=== PATIENT | male | born 1945 | race Caucasian/White ===

== ENCOUNTER 2018-08-16 13:03 | Inpatient (IN) | payer MEDICARE, OTHER ==
[2018-08-16 14:11] LABS: ADD MAN DIFF? NO
[2018-08-16 14:13] LABS: BASOPHILS % 0.7 % (0.0-2.0); EOSINOPHILS # 0.3 10^3/ul (0.0-0.5); EOSINOPHILS % 4.3 % (0.0-7.0); HEMATOCRIT 21.7 % (42.0-52.0); LYMPHOCYTES # 0.7 10^3/ul (0.8-2.9); LYMPHOCYTES % 12.5 % (15.0-51.0); MEAN CORPUSCULAR HEMOGLOBIN 33.3 pg (29.0-33.0); MEAN CORPUSCULAR HGB CONC 32.3 g/dl (32.0-37.0); MEAN CORPUSCULAR VOLUME 103.3 fl (82.0-101.0); MEAN PLATELET VOLUME 10.7 fl (7.4-10.4); MONOCYTE # 0.5 10^3/ul (0.3-0.9); MONOCYTES % 7.9 % (0.0-11.0); NEUTROPHIL # 4.3 10^3/ul (1.6-7.5); NEUTROPHILS % 74.3 % (39.0-77.0); PLATELET COUNT 234 10^3/UL (140-415); RED CELL DISTRIBUTION WIDTH 17.2 % (11.5-14.5)
[2018-08-16 14:13] LABS: WHITE BLOOD COUNT 5.8 10^3/ul (4.8-10.8)
[2018-08-16] MEDS ORDERED: ONDANSETRON 4 MG INJ IV (14:30)
[2018-08-16] MEDS ORDERED: ACETAMINOPHEN 325 MG TAB PO (14:30)
[2018-08-16 14:34] LABS: ALANINE AMINOTRANSFERASE 15 IU/L (13-69); ALBUMIN 3.7 g/dl (3.3-4.9); ALBUMIN/GLOBULIN RATIO 1.12; ALKALINE PHOSPHATASE 80 IU/L (42-121); ANION GAP 11 (5-13); ASPARTATE AMINO TRANSFERASE 40 IU/L (15-46); BILIRUBIN,INDIRECT 0.2 mg/dl (0-1.1); BILIRUBIN,TOTAL 0.2 mg/dl (0.2-1.3); BLOOD UREA NITROGEN 24 mg/dl (7-20); CALCIUM 9.5 mg/dl (8.4-10.2); CARBON DIOXIDE 34 mmol/L (21-31); CHLORIDE 94 mmol/L (97-110); CREATININE 2.25 mg/dl (0.61-1.24); GLUCOSE 105 mg/dl (70-220); POTASSIUM 3.6 mmol/L (3.5-5.1); SODIUM 139 mmol/L (135-144)
[2018-08-16 15:40] LABS: INR 0.94; PROTIME 12.7 Sec (11.9-14.9)
[2018-08-16 15:41] LABS: PARTIAL THROMBOPLASTIN TIME 31.3 Sec (23.0-35.0)
[2018-08-16] MEDS: SOD CHLORIDE 0.9% 250 ML IV (16:19)
[2018-08-16] MEDS: SOD CHLORIDE 0.9% 250 ML IV* (18:21)
[2018-08-16] MEDS: ATORVASTATIN 20 MG TAB PO (21:39)
[2018-08-16] MEDS: METOPROLOL 25 MG TAB PO (21:39)
[2018-08-17 07:01] LABS: ADD MAN DIFF? NO
[2018-08-17 07:07] LABS: BASOPHILS % 1.1 % (0.0-2.0); EOSINOPHILS # 0.4 10^3/ul (0.0-0.5); HEMATOCRIT 26.3 % (42.0-52.0); HEMOGLOBIN 8.5 g/dl (14.0-18.0); LYMPHOCYTES # 0.8 10^3/ul (0.8-2.9); LYMPHOCYTES % 14.3 % (15.0-51.0); MEAN CORPUSCULAR HEMOGLOBIN 32.4 pg (29.0-33.0); MEAN CORPUSCULAR HGB CONC 32.3 g/dl (32.0-37.0); MEAN CORPUSCULAR VOLUME 100.4 fl (82.0-101.0); MEAN PLATELET VOLUME 10.8 fl (7.4-10.4); MONOCYTE # 0.5 10^3/ul (0.3-0.9); MONOCYTES % 8.8 % (0.0-11.0); NEUTROPHIL # 3.8 10^3/ul (1.6-7.5); NEUTROPHILS % 68.4 % (39.0-77.0); PLATELET COUNT 186 10^3/UL (140-415); RED BLOOD COUNT 2.62 10^6/ul (4.70-6.10); RED CELL DISTRIBUTION WIDTH 17.5 % (11.5-14.5)
[2018-08-17 07:07] LABS: WHITE BLOOD COUNT 5.6 10^3/ul (4.8-10.8)
[2018-08-17 07:08] LABS: BASOPHIL # 0.1 10^3/ul (0.0-0.1)
[2018-08-17 07:36] LABS: ANION GAP 7 (5-13); BLOOD UREA NITROGEN 37 mg/dl (7-20); CARBON DIOXIDE 33 mmol/L (21-31); CHLORIDE 100 mmol/L (97-110); CREATININE 3.25 mg/dl (0.61-1.24); GLUCOSE 99 mg/dl (70-220); POTASSIUM 4.2 mmol/L (3.5-5.1); SODIUM 140 mmol/L (135-144)
[2018-08-17] MEDS: AMLODIPINE 10 MG TAB PO (08:57)
[2018-08-17] MEDS: METOPROLOL 25 MG TAB PO ×2 (08:57→20:43)
[2018-08-17] MEDS ORDERED: ALBUMIN HUMAN 25% 100 ML IV (09:00)
[2018-08-17] MEDS ORDERED: SODIUM CHLORIDE 0.9% 1L BAG IV (09:00)
[2018-08-17] MEDS: CALCIUM ACETATE 667 MG CAP PO ×3 (09:20→17:32)
[2018-08-17] MEDS: ALLOPURINOL 300 MG TAB PO (09:20)
[2018-08-17 13:04] LABS: HEMATOCRIT 24.3 % (42.0-52.0); HEMOGLOBIN 7.9 g/dl (14.0-18.0)
[2018-08-17 20:16] LABS: HEMATOCRIT 24.7 % (42.0-52.0); HEMOGLOBIN 8.1 g/dl (14.0-18.0)
[2018-08-17] MEDS: ATORVASTATIN 20 MG TAB PO (20:42)
[2018-08-17 21:05] LABS: HEPATITIS B SURFACE ANTIGEN NEGATIVE (NEGATIVE)
[2018-08-17 21:23] LABS: HEPATITIS B SURFACE ANTIBODY NEGATIVE (NEGATIVE)
[2018-08-17 21:57] LABS: IMMEDIATE SPIN CROSSMATCH 1 4
[2018-08-18 06:48] LABS: ANION GAP 9 (5-13); BLOOD UREA NITROGEN 42 mg/dl (7-20); CARBON DIOXIDE 28 mmol/L (21-31); CHLORIDE 103 mmol/L (97-110); CREATININE 3.77 mg/dl (0.61-1.24); GLUCOSE 89 mg/dl (70-220); POTASSIUM 3.5 mmol/L (3.5-5.1); SODIUM 140 mmol/L (135-144)
[2018-08-18] MEDS: CALCIUM ACETATE 667 MG CAP PO ×3 (08:16→17:42)
[2018-08-18] MEDS: ALLOPURINOL 300 MG TAB PO (08:16)
[2018-08-18] MEDS: METOPROLOL 25 MG TAB PO ×2 (08:17→20:58)
[2018-08-18] MEDS: AMLODIPINE 10 MG TAB PO (08:17)
[2018-08-18 09:50] LABS: HEMATOCRIT 27.5 % (42.0-52.0)
[2018-08-18 20:52] LABS: HEMATOCRIT 29.2 % (42.0-52.0); HEMOGLOBIN 9.6 g/dl (14.0-18.0)
[2018-08-18] MEDS: BISACODYL (EC) 5 MG TAB PO ×2 (20:52→23:32)
[2018-08-18] MEDS: ATORVASTATIN 20 MG TAB PO (20:55)
[2018-08-18] MEDS: PEG/ELECTROLYTES 4L BTL PO (21:47)
[2018-08-19] MEDS: PEG/ELECTROLYTES 4L BTL PO (00:21)
[2018-08-19 05:20] LABS: ADD MAN DIFF? NO
[2018-08-19 05:24] LABS: WHITE BLOOD COUNT 6.7 10^3/ul (4.8-10.8)
[2018-08-19 05:24] LABS: BASOPHIL # 0.1 10^3/ul (0.0-0.1); BASOPHILS % 0.9 % (0.0-2.0); EOSINOPHILS # 0.4 10^3/ul (0.0-0.5); EOSINOPHILS % 5.3 % (0.0-7.0); HEMATOCRIT 30.9 % (42.0-52.0); LYMPHOCYTES # 0.7 10^3/ul (0.8-2.9); LYMPHOCYTES % 10.4 % (15.0-51.0); MEAN CORPUSCULAR HEMOGLOBIN 31.7 pg (29.0-33.0); MEAN CORPUSCULAR HGB CONC 32.4 g/dl (32.0-37.0); MEAN CORPUSCULAR VOLUME 98.1 fl (82.0-101.0); MEAN PLATELET VOLUME 10.5 fl (7.4-10.4); MONOCYTE # 0.5 10^3/ul (0.3-0.9); MONOCYTES % 7.8 % (0.0-11.0); NEUTROPHILS % 75.3 % (39.0-77.0); PLATELET COUNT 195 10^3/UL (140-415); RED BLOOD COUNT 3.15 10^6/ul (4.70-6.10); RED CELL DISTRIBUTION WIDTH 17.1 % (11.5-14.5)
[2018-08-19 05:57] LABS: ANION GAP 11 (5-13); BLOOD UREA NITROGEN 25 mg/dl (7-20); CALCIUM 9.5 mg/dl (8.4-10.2); CARBON DIOXIDE 32 mmol/L (21-31); CHLORIDE 99 mmol/L (97-110); CREATININE 3.04 mg/dl (0.61-1.24); GLUCOSE 106 mg/dl (70-220); POTASSIUM 4.3 mmol/L (3.5-5.1); SODIUM 142 mmol/L (135-144)
[2018-08-19] MEDS: CALCIUM ACETATE 667 MG CAP PO ×3 (07:35→17:45)
[2018-08-19] MEDS: AMLODIPINE 10 MG TAB PO (08:38)
[2018-08-19] MEDS: METOPROLOL 25 MG TAB PO ×2 (08:38→21:41)
[2018-08-19] MEDS: ALLOPURINOL 300 MG TAB PO (08:38)
[2018-08-19 09:47] LABS: HEMATOCRIT 30.4 % (42.0-52.0); HEMOGLOBIN 9.9 g/dl (14.0-18.0)
[2018-08-19] MEDS: PROPOFOL 20 ML ×2 (12:10→13:02)
[2018-08-19] MEDS: FENTAnyl 50 MCG/ML VIAL (12:10)
[2018-08-19] MEDS ORDERED: HYDROmorphONE 1 MG/5 ML IV SYRINGE IV (12:30)
[2018-08-19] MEDS ORDERED: ONDANSETRON 4 MG INJ IV (12:30)
[2018-08-19] MEDS: EPHEDrine 50 MG INJ (13:02)
[2018-08-19] MEDS: SOD CHLORIDE 0.9% 250 ML IV* (15:49)
[2018-08-19] MEDS: ATORVASTATIN 20 MG TAB PO (21:41)
[2018-08-20 06:12] LABS: ADD MAN DIFF? NO
[2018-08-20 06:16] LABS: WHITE BLOOD COUNT 5.1 10^3/ul (4.8-10.8)
[2018-08-20 06:16] LABS: BASOPHILS % 0.8 % (0.0-2.0); EOSINOPHILS # 0.4 10^3/ul (0.0-0.5); EOSINOPHILS % 8.2 % (0.0-7.0); HEMATOCRIT 28.6 % (42.0-52.0); HEMOGLOBIN 9.4 g/dl (14.0-18.0); LYMPHOCYTES # 0.7 10^3/ul (0.8-2.9); LYMPHOCYTES % 14.3 % (15.0-51.0); MEAN CORPUSCULAR HEMOGLOBIN 32.3 pg (29.0-33.0); MEAN CORPUSCULAR HGB CONC 32.9 g/dl (32.0-37.0); MEAN CORPUSCULAR VOLUME 98.3 fl (82.0-101.0); MEAN PLATELET VOLUME 10.6 fl (7.4-10.4); MONOCYTE # 0.4 10^3/ul (0.3-0.9); NEUTROPHIL # 3.5 10^3/ul (1.6-7.5); NEUTROPHILS % 68.5 % (39.0-77.0); PLATELET COUNT 181 10^3/UL (140-415); RED BLOOD COUNT 2.91 10^6/ul (4.70-6.10); RED CELL DISTRIBUTION WIDTH 16.4 % (11.5-14.5)
[2018-08-20 06:37] LABS: ANION GAP 10 (5-13); BLOOD UREA NITROGEN 24 mg/dl (7-20); CALCIUM 9.2 mg/dl (8.4-10.2); CARBON DIOXIDE 30 mmol/L (21-31); CHLORIDE 98 mmol/L (97-110); CREATININE 3.36 mg/dl (0.61-1.24); GLUCOSE 94 mg/dl (70-220); POTASSIUM 3.5 mmol/L (3.5-5.1); SODIUM 138 mmol/L (135-144)
[2018-08-20] MEDS: AMLODIPINE 10 MG TAB PO (09:19)
[2018-08-20] MEDS: CALCIUM ACETATE 667 MG CAP PO ×3 (09:19→17:42)
[2018-08-20] MEDS: ALLOPURINOL 300 MG TAB PO (09:19)
[2018-08-20] MEDS: METOPROLOL 25 MG TAB PO ×2 (09:20→21:43)
[2018-08-20] MEDS: ATORVASTATIN 20 MG TAB PO (21:42)
[2018-08-21 06:06] LABS: ADD MAN DIFF? NO
[2018-08-21 06:11] LABS: BASOPHIL # 0.1 10^3/ul (0.0-0.1); BASOPHILS % 0.9 % (0.0-2.0); EOSINOPHILS # 0.5 10^3/ul (0.0-0.5); EOSINOPHILS % 9.2 % (0.0-7.0); HEMATOCRIT 28.7 % (42.0-52.0); HEMOGLOBIN 9.4 g/dl (14.0-18.0); LYMPHOCYTES # 0.8 10^3/ul (0.8-2.9); LYMPHOCYTES % 14.8 % (15.0-51.0); MEAN CORPUSCULAR HEMOGLOBIN 32.1 pg (29.0-33.0); MEAN CORPUSCULAR HGB CONC 32.8 g/dl (32.0-37.0); MEAN PLATELET VOLUME 10.5 fl (7.4-10.4); MONOCYTE # 0.5 10^3/ul (0.3-0.9); MONOCYTES % 9.4 % (0.0-11.0); NEUTROPHIL # 3.6 10^3/ul (1.6-7.5); NEUTROPHILS % 65.5 % (39.0-77.0); PLATELET COUNT 174 10^3/UL (140-415); RED BLOOD COUNT 2.93 10^6/ul (4.70-6.10); RED CELL DISTRIBUTION WIDTH 15.9 % (11.5-14.5)
[2018-08-21 06:11] LABS: WHITE BLOOD COUNT 5.6 10^3/ul (4.8-10.8)
[2018-08-21 06:53] LABS: ANION GAP 11 (5-13); BLOOD UREA NITROGEN 25 mg/dl (7-20); CALCIUM 9.3 mg/dl (8.4-10.2); CARBON DIOXIDE 28 mmol/L (21-31); CHLORIDE 99 mmol/L (97-110); CREATININE 3.53 mg/dl (0.61-1.24); GLUCOSE 87 mg/dl (70-220); POTASSIUM 4.3 mmol/L (3.5-5.1); SODIUM 138 mmol/L (135-144)
== END 2018-08-21 08:15 | disposition left against medical advice (07) | DRG 393 ==
LOC: E/R 13:03 → PP2 14:24
PROC: 0DBH8ZX Excision of Cecum, Via Natural or Artificial Opening Endoscopic, Diagnostic (ICD-10-PCS; principal; 2018-08-19 12:05)
PROC: 30233N1 Transfusion of Nonautologous Red Blood Cells into Peripheral Vein, Percutaneous Approach (ICD-10-PCS; 2018-08-19 12:05)
PROC: 30233N1 Transfusion of Nonautologous Red Blood Cells into Peripheral Vein, Percutaneous Approach (ICD-10-PCS; 2018-08-19 12:05)
PROC: 5A1D70Z Performance of Urinary Filtration, Intermittent, Less than 6 Hours Per Day (ICD-10-PCS; 2018-08-19 12:05)
PROC: 5A1D70Z Performance of Urinary Filtration, Intermittent, Less than 6 Hours Per Day (ICD-10-PCS; 2018-08-19 12:05)
DX: K64.4 Residual hemorrhoidal skin tags (principal); N18.6 End stage renal disease; D62 Acute posthemorrhagic anemia; I12.0 Hypertensive chronic kidney disease with stage 5 chronic kidney disease or end stage renal disease; I48.0 Paroxysmal atrial fibrillation; E78.5 Hyperlipidemia, unspecified; M10.9 Gout, unspecified; K55.20 Angiodysplasia of colon without hemorrhage; K57.90 Diverticulosis of intestine, part unspecified, without perforation or abscess without bleeding; D12.0 Benign neoplasm of cecum; Z99.2 Dependence on renal dialysis; Z90.79 Acquired absence of other genital organ(s); Z85.46 Personal history of malignant neoplasm of prostate
CPT/HCPCS: 36415; 36430; 80048; 80053; 85014; 85018; 85025; 85610; 85730; 86706; 86850; 86900; 86901; 86920; 87081; 87340; 88305; 90935; 93005; 93306; 99291-25

== ENCOUNTER 2019-01-25 09:45 | Observation (INO) | payer MEDICARE, OTHER ==
[2019-01-25 10:37] LABS: ADD MAN DIFF? NO
[2019-01-25 10:45] LABS: WHITE BLOOD COUNT 7.9 10^3/ul (4.8-10.8)
[2019-01-25 10:45] LABS: BASOPHIL # 0.1 10^3/ul (0.0-0.1); BASOPHILS % 1.1 % (0.0-2.0); EOSINOPHILS # 0.6 10^3/ul (0.0-0.5); EOSINOPHILS % 7.1 % (0.0-7.0); HEMATOCRIT 28.2 % (42.0-52.0); LYMPHOCYTES # 0.8 10^3/ul (0.8-2.9); LYMPHOCYTES % 10.6 % (15.0-51.0); MEAN CORPUSCULAR HEMOGLOBIN 31.8 pg (29.0-33.0); MEAN CORPUSCULAR HGB CONC 31.9 g/dl (32.0-37.0); MEAN CORPUSCULAR VOLUME 99.6 fl (82.0-101.0); MEAN PLATELET VOLUME 10.6 fl (7.4-10.4); MONOCYTE # 0.7 10^3/ul (0.3-0.9); MONOCYTES % 8.5 % (0.0-11.0); NEUTROPHIL # 5.7 10^3/ul (1.6-7.5); NEUTROPHILS % 72.3 % (39.0-77.0); PLATELET COUNT 172 10^3/UL (140-415); RED BLOOD COUNT 2.83 10^6/ul (4.70-6.10); RED CELL DISTRIBUTION WIDTH 15.9 % (11.5-14.5)
[2019-01-25 10:59] LABS: INR 0.99; PARTIAL THROMBOPLASTIN TIME 32.4 Sec (23.0-35.0); PROTIME 13.2 Sec (11.9-14.9)
[2019-01-25 11:16] LABS: ANION GAP 9 (5-13); BLOOD UREA NITROGEN 47 mg/dl (7-20); CALCIUM 9.8 mg/dl (8.4-10.2); CARBON DIOXIDE 36 mmol/L (21-31); CHLORIDE 92 mmol/L (97-110); CREATININE 3.52 mg/dl (0.61-1.24); GLUCOSE 90 mg/dl (70-220); POTASSIUM 4.1 mmol/L (3.5-5.1); SODIUM 137 mmol/L (135-144)
[2019-01-25] MEDS ORDERED: ACETAMINOPHEN 325 MG TAB PO ×2 (11:30→15:00)
[2019-01-25] MEDS ORDERED: ONDANSETRON 4 MG INJ IV (11:30)
[2019-01-25] MEDS ORDERED: ALBUMIN HUMAN 25% 100 ML IV (14:30)
[2019-01-25] MEDS ORDERED: SODIUM CHLORIDE 0.9% 1L BAG IV (14:30)
[2019-01-25] MEDS ORDERED: COLCHICINE 0.6 MG TAB PO (14:30)
[2019-01-25] MEDS: PEG/ELECTROLYTES 4L BTL PO (17:01)
[2019-01-25 17:28] LABS: HEPATITIS B SURFACE ANTIGEN NEGATIVE (NEGATIVE)
[2019-01-25 17:59] LABS: HEPATITIS B SURFACE ANTIBODY POSITIVE (NEGATIVE)
[2019-01-25] MEDS ORDERED: METOPROLOL 50 MG TAB GTB (21:00)
[2019-01-25] MEDS: AMLODIPINE 5 MG TAB PO (21:11)
[2019-01-25] MEDS: ATORVASTATIN 10 MG TAB PO (21:11)
[2019-01-25] MEDS: METOPROLOL 50 MG TAB PO (21:11)
[2019-01-26 04:57] LABS: ADD MAN DIFF? NO
[2019-01-26 04:59] LABS: BASOPHIL # 0.1 10^3/ul (0.0-0.1); BASOPHILS % 1.3 % (0.0-2.0); EOSINOPHILS # 0.7 10^3/ul (0.0-0.5); EOSINOPHILS % 11.4 % (0.0-7.0); HEMATOCRIT 25.3 % (42.0-52.0); HEMOGLOBIN 8.2 g/dl (14.0-18.0); LYMPHOCYTES # 1.2 10^3/ul (0.8-2.9); LYMPHOCYTES % 18.5 % (15.0-51.0); MEAN CORPUSCULAR HEMOGLOBIN 31.3 pg (29.0-33.0); MEAN CORPUSCULAR HGB CONC 32.4 g/dl (32.0-37.0); MEAN CORPUSCULAR VOLUME 96.6 fl (82.0-101.0); MEAN PLATELET VOLUME 10.8 fl (7.4-10.4); MONOCYTE # 0.6 10^3/ul (0.3-0.9); MONOCYTES % 8.8 % (0.0-11.0); NEUTROPHIL # 3.7 10^3/ul (1.6-7.5); NEUTROPHILS % 59.5 % (39.0-77.0); PLATELET COUNT 163 10^3/UL (140-415); RED BLOOD COUNT 2.62 10^6/ul (4.70-6.10); RED CELL DISTRIBUTION WIDTH 15.7 % (11.5-14.5)
[2019-01-26 04:59] LABS: WHITE BLOOD COUNT 6.2 10^3/ul (4.8-10.8)
[2019-01-26 05:19] LABS: INR 1.06; PARTIAL THROMBOPLASTIN TIME 32.5 Sec (23.0-35.0); PROTIME 13.9 Sec (11.9-14.9); PT RATIO 1.1
[2019-01-26 05:27] LABS: ALANINE AMINOTRANSFERASE 20 IU/L (13-69); ALBUMIN 3.6 g/dl (3.3-4.9); ALBUMIN/GLOBULIN RATIO 1.44; ALKALINE PHOSPHATASE 54 IU/L (42-121); ANION GAP 12 (5-13); ASPARTATE AMINO TRANSFERASE 25 IU/L (15-46); BILIRUBIN,INDIRECT 0.2 mg/dl (0-1.1); BILIRUBIN,TOTAL 0.2 mg/dl (0.2-1.3); BLOOD UREA NITROGEN 45 mg/dl (7-20); CALCIUM 9.1 mg/dl (8.4-10.2); CARBON DIOXIDE 31 mmol/L (21-31); CHLORIDE 94 mmol/L (97-110); CREATININE 3.53 mg/dl (0.61-1.24); GLUCOSE 94 mg/dl (70-220); POTASSIUM 3.3 mmol/L (3.5-5.1); SODIUM 137 mmol/L (135-144); TOTAL PROTEIN 6.1 g/dl (6.1-8.1)
[2019-01-26] MEDS: METOPROLOL 50 MG TAB PO ×2 (09:00→21:33)
[2019-01-26] MEDS: ALLOPURINOL 300 MG TAB PO (09:00)
[2019-01-26] MEDS: AMLODIPINE 5 MG TAB PO ×2 (09:00→21:33)
[2019-01-26] MEDS: ETOMIDATE 20 MG INJ (20:00)
[2019-01-26] MEDS: PROPOFOL 20 ML (20:00)
[2019-01-26] MEDS: LIDOCAINE 2% (SDV) 5 ML INJ (20:00)
[2019-01-26] MEDS: ATORVASTATIN 10 MG TAB PO (21:32)
[2019-01-27 06:05] LABS: CHOLESTEROL 125 mg/dl (100-200)
[2019-01-27 06:05] LABS: CHOL/HDL RATIO 3.2 RATIO; HDL CHOLESTEROL 38 mg/dl (31-75); LDL CHOLESTEROL,CALCULATED 63 mg/dl; TRIGLYCERIDES 119 mg/dl (0-149)
[2019-01-27] MEDS: METOPROLOL 50 MG TAB PO (08:57)
[2019-01-27] MEDS: AMLODIPINE 5 MG TAB PO (08:58)
[2019-01-27] MEDS: ALLOPURINOL 300 MG TAB PO (08:58)
== END 2019-01-27 16:40 | disposition home or self-care (01) ==
LOC: E/R 09:45 → MS1 11:25
PROVIDERS: Internal Medicine
DX: K57.31 Diverticulosis of large intestine without perforation or abscess with bleeding (principal); K29.00 Acute gastritis without bleeding; K62.5 Hemorrhage of anus and rectum; I12.0 Hypertensive chronic kidney disease with stage 5 chronic kidney disease or end stage renal disease; I48.91 Unspecified atrial fibrillation; N18.6 End stage renal disease; D64.9 Anemia, unspecified; E87.5 Hyperkalemia; K57.30 Diverticulosis of large intestine without perforation or abscess without bleeding; K55.20 Angiodysplasia of colon without hemorrhage; K22.2 Esophageal obstruction; Z91.040 Latex allergy status; Z88.0 Allergy status to penicillin; Z99.2 Dependence on renal dialysis; I48.0 Paroxysmal atrial fibrillation
CPT/HCPCS: 36415; 80048; 80053; 80061; 84443; 85025; 85610; 85730; 86706; 86850; 86900; 86901; 87340; 88305; 90935; 93005; 99285-25